=== PATIENT | female | born 1955 | race Caucasian/White ===

== ENCOUNTER → 2023-07-27 14:52 | Outpatient (REF) | payer MEDICARE, SELFPAY | LOC: DHCBC HW 14:52 | PROVIDERS: ATTENDING PHYSICIAN Nurse Practitioner; FAMILY PHYSICIAN Physician Assistant Medical | DX: I50.32 Chronic diastolic (congestive) heart failure (principal); R06.09 Other forms of dyspnea | CPT/HCPCS: 71046; 93306 ==

== ENCOUNTER → 2024-04-28 10:57 | Outpatient (REF) | payer MEDICARE, SELFPAY | LOC: WDC 10:57 | PROVIDERS: ATTENDING PHYSICIAN Physician Assistant Medical | DX: Z12.31 Encounter for screening mammogram for malignant neoplasm of breast (principal) | CPT/HCPCS: 77063; 77067 ==